=== PATIENT | female | born 1980 | race African-American/Black ===

== ENCOUNTER 2016-12-02 14:40 | Emergency (ER) | payer MEDICAID ==
[~2016-12-02] VITALS: Ht 165.1 cm; Wt 67.0 kg
[~2016-12-02 14:40] MED LIST: PHEN100C4
[2016-12-02] MEDS ORDERED: SODIUM CHLORIDE 0.9% 1,000 ML IV ONE (15:33)
[2016-12-02] MEDS ORDERED: ACETAMINOPHEN 325MG TABLET PO ONE (15:45)
[2016-12-02] MEDS ORDERED: LEVETIRACETAM 500MG PREMIX 100 ML IV ONE (15:45)
[2016-12-02 15:54] LABS: BASOPHILS % 0.5 % (0.0-2.0); EOSINOPHILS % 1.5 % (0.0-5.0); HEMATOCRIT. 35.6 % (36.0-48.0); HEMOGLOBIN. 11.9 g/dL (12.0-16.0); LYMPHOCYTES % 25.6 % (20.0-50.0); MEAN CORPUSCULAR HEMOGLOBIN 31.1 pg (28.0-32.0); MEAN CORPUSCULAR HGB CONC 33.5 g/dL (31.0-37.0); MEAN CORPUSCULAR VOLUME 92.8 fL (81.0-99.0); MEAN PLATELET VOLUME 7.3 fl (7.4-10.4); NEUTROPHILS % 63.4 % (40.0-76.0); PLATELET 192 x1000/uL (130-400); RED BLOOD CELL COUNT 3.84 mill/uL (4.2-5.4); WHITE BLOOD COUNT 6.1 x1000/uL (4.5-11.0)
[2016-12-02 16:00] LABS: INR 1.1; PROTHROMBIN TIME 11.5 sec
[2016-12-02 16:05] LABS: AMMONIA 21 uMol/L (<32)
[2016-12-02 16:07] LABS: HCG SCREEN NEGATIVE
[2016-12-02 16:12] LABS: CHLORIDE 100 mEq/L (98-107); INDEX HEMOLYSI 1 (1-3); INDEX ICTERIC 1 (1-4); INDEX LIPEMIC 1 (1-3)
[2016-12-02 16:18] LABS: ALANINE AMINOTRANSFERASE 23 IU/L (13-61); ALBUMIN 3.2 g/dL (3.4-5.0); ANION GAP 10; CALCIUM 8.1 mg/dL (8.5-10.1); CARBON DIOXIDE 29 mEq/L (21-32); ETHANOL BLOOD < 10 mg/dL; UREA NITROGEN BLOOD 7 mg/dL (7-21); eGFR > 60 mL/min (>60)
[2016-12-02 16:20] LABS: CREATINE KINASE 58 IU/L (26-192); NT PRO B-TYPE NATRIURETIC PEP 70 pg/mL (5-125); TROPONIN I < 0.02 ng/mL (0.00-0.04)
[2016-12-02 16:22] LABS: PHENYTOIN 7.2 ug/mL (10-20)
[2016-12-02 16:26] LABS: CARBAMAZEPINE < 0.5 ug/mL (4-12); PHENOBARBITAL < 2.1 ug/mL (15.0-40.0); VALPROIC ACID 4.9 ug/mL (50-100)
[2016-12-02] MEDS ORDERED: PHENYTOIN SODIUM EXTENDED 100MG CAPSULE PO ONE (17:45)
[2016-12-02] MEDS ORDERED: IBUPROFEN 600MG TABLET PO ONE (17:45)
[2016-12-02 17:48] LABS: CLARITY URINE CLEAR (CLEAR); COLOR URINE YELLOW (YELLOW); GLUCOSE URINE NEGATIVE (NEGATIVE); KETONES URINE NEGATIVE (NEGATIVE); LEUKOCYTE ESTERASE URINE NEGATIVE (NEGATIVE); NITRITE URINE NEGATIVE (NEGATIVE); OCCULT BLOOD URINE NEGATIVE (NEGATIVE); PROTEIN URINE NEGATIVE (NEGATIVE); SPECIFIC GRAVITY URINE 1.006 (1.005-1.030); UROBILINOGEN URINE 0.2 E.U./dL (0.2-1.0)
[2016-12-02 18:05] LABS: *AMPHETAMINES SCREEN URINE NEGATIVE (NEGATIVE); *BARBITURATES SCREEN URINE NEGATIVE (NEGATIVE); *BENZODIAZEPINES SCREEN URINE NEGATIVE (NEGATIVE); *COCAINE SCREEN URINE NEGATIVE (NEGATIVE); CANNABINOID URINE SCREEN NEGATIVE (NEGATIVE); ECSTASY MDMA SCREEN URINE NEGATIVE (NEGATIVE); METHADONE URINE SCREEN NEGATIVE (NEGATIVE); OPIATES URINE SCREEN NEGATIVE (NEGATIVE); PHENCYCLIDINE URINE SCREEN NEGATIVE (NEGATIVE)
[2016-12-02 18:17] VITALS: BP 104/69
== END 2016-12-02 18:18 | disposition home or self-care (01) ==
LOC: ER 14:46
DX: R56.9 Unspecified convulsions (principal); S09.90XA Unspecified injury of head, initial encounter; R79.1 Abnormal coagulation profile; Z79.899 Other long term (current) drug therapy; X58.XXXA Exposure to other specified factors, initial encounter; Y93.89 Activity, other specified; Y92.89 Other specified places as the place of occurrence of the external cause; Y99.8 Other external cause status
CPT/HCPCS: 36415; 70450; 80053; 80156; 80165; 80184; 80185; 80305; 81003; 82140; 82550; 83880; 84443; 84484; 84703; 85025; 85610; 93005; 96365; 99285; G0482; J1953; J7030; Z7610

== ENCOUNTER → 2017-04-20 | Emergency (ER) | payer MEDICAID ==
[~2017-04-20] VITALS: Ht 170.2 cm; Wt 106.0 kg
[2017-04-20 12:01] VITALS: BP 149/91
== END ==
LOC: ER 11:59
DX: R51 Headache (principal)
CPT/HCPCS: 99283

== ENCOUNTER 2019-01-27 20:25 | Emergency (ER) | payer MEDICAID ==
[~2019-01-27] VITALS: Ht 160 cm; Wt 79.0 kg
[2019-01-27] MEDS ORDERED: KETOROLAC 30MG/ML VIAL IM ONE (21:15)
[2019-01-27] MEDS ORDERED: LIDOCAINE HCL/PF 1% 10 MG/ML 5ML VIAL IJ ONE (21:15)
[2019-01-27] MEDS ORDERED: BACITRACIN ZINC OINT UDPKT TOP ONE (21:15)
[2019-01-27] MEDS ORDERED: LIDOCAINE HCL 2% JELLY 5ML TOP ONE (21:15)
[2019-01-27] MEDS ORDERED: TETANUS, DIPHTHERIA, PERTUSSIS VAC/PF 0.5ML (>7YR OLD) IM ONE (21:15)
[2019-01-27] MEDS ORDERED: HYDROCODONE/ACETAMINOPHEN 5/325MG TABLET PO ONE (21:15)
[2019-01-27 21:42] VITALS: BP 140/86
== END 2019-01-27 23:44 | disposition home or self-care (01) ==
LOC: ER 23:38
DX: S01.81XA Laceration without foreign body of other part of head, initial encounter (principal); F17.200 Nicotine dependence, unspecified, uncomplicated; W18.39XA Other fall on same level, initial encounter; Y93.89 Activity, other specified; Y92.89 Other specified places as the place of occurrence of the external cause; Y99.8 Other external cause status; Z98.890 Other specified postprocedural states
CPT/HCPCS: 12013; 90471; 90715; 96372; 99284; J1885; J3490; Z7610

== ENCOUNTER 2019-02-02 15:19 | Emergency (ER) | payer MEDICAID ==
[~2019-02-02] VITALS: Ht 160 cm; Wt 79.0 kg
[2019-02-02 15:45] VITALS: BP 115/75
== END 2019-02-02 16:21 | disposition home or self-care (01) ==
LOC: ER 15:19
DX: Z48.02 Encounter for removal of sutures (principal)
CPT/HCPCS: 99281

== ENCOUNTER 2025-06-23 17:27 | Emergency (ER) | payer BC, MEDICAID ==
[~2025-06-23] VITALS: Ht 165.1 cm; Wt 70.0 kg
[2025-06-23 17:30] VITALS: O2SAT 100
[2025-06-23 17:55] VITALS: TEMP 37.1
[2025-06-23] MEDS: LORAZEPAM 2MG/ML UD SYRINGE IV SCH (18:05)
[2025-06-23 18:06] LABS: BASOPHILS % 0.5 % (0.0-2.0); EOSINOPHILS % 3.3 % (0.0-5.0); HEMATOCRIT. 33.8 % (36.0-48.0); HEMOGLOBIN. 11.1 g/dL (12.0-16.0); LYMPHOCYTES % 18.8 % (20.0-50.0); MEAN PLATELET VOLUME 8.0 fl (7.4-10.4); MONOCYTES % 13.5 % (2.0-8.0); NEUTROPHILS % 63.9 % (40.0-76.0); PLATELET 267 x1000/uL (130-400); RED BLOOD CELL COUNT 3.65 mill/uL (4.2-5.4); RED CELL DISTRIBUTION WIDTH 15.5 % (11.6-14.6)
[2025-06-23] MEDS: PHENYTOIN SODIUM 500 MG in SODIUM CHLORIDE 0.9% 50 ML IV ONE (18:29)
[2025-06-23 19:34] LABS: CREATININE 0.7 mg/dL (0.6-1.0); PHENYTOIN 14.3 ug/mL (10-20); UREA NITROGEN BLOOD 7 mg/dL (9-23)
[2025-06-23 19:35] LABS: TROPONIN I HIGH SENSITIVITY < 4 ng/L (3.0-34)
[2025-06-23 20:19] VITALS: BP 126/77; PULSE 96; RESP 18; O2SAT 97
== END 2025-06-23 20:37 | disposition home or self-care (01) ==
LOC: ER 17:27 → CMPBEDREQ 06-24 07:42
DX: G40.909 Epilepsy, unspecified, not intractable, without status epilepticus (principal); R07.9 Chest pain, unspecified
CPT/HCPCS: 80048; 80320; 80185; 85025; 84484; 36415; 93005; 96365; 96375; 99284; J2060; J1165; G0480